=== PATIENT | male | born 2005 | race Two or more races ===

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

== ENCOUNTER 2023-01-16 22:53 | Emergency (ER) | payer MEDICAID ==
[~2023-01-16] VITALS: Ht 180.3 cm; Wt 103.5 kg
[2023-01-16 23:26] LABS: Basophils # (auto) 0 10 ^3/uL (0-0.2); Basophils % (auto) 0.2 % (0.0-2.0); Eosinophils # (auto) 0.1 10 ^3/uL (0-0.8); Hematocrit 45.4 % (41.0-53.0); Hemoglobin 16.1 g/dL (13.5-17.5); Lymphocytes # (auto) 1.5 10 ^3/uL (0.4-5.4); Lymphocytes % (auto) 14.8 % (10.0-50.0); Mean Corpuscular Hgb Conc. 35.4 g/dL (32.0-36.0); Mean Corpuscular Volume 84.8 fL (80.0-100.0); Monocytes # (auto) 0.8 10 ^3/uL (0-1.3); Monocytes % (auto) 7.3 % (0.0-12.0); Neutrophils # (auto) 7.9 10 ^3/uL (1.6-8.6); Neutrophils % (auto) 76.7 % (37.0-80.0); Red Blood Cells 5.36 10^6/uL (4.5-5.90); Red Cell Distribution Width 13.1 % (11.8-14.3); White Blood Cell 10.3 10^3/uL (4.4-10.8)
[2023-01-16 23:39] VITALS: BP 129/82
[2023-01-16 23:39] LABS: BUN/Creatinine Ratio 13.5 (10.0-20.0); Calcium 8.5 mg/dL (8.5-10.1); Magnesium 1.9 mg/dL (1.6-2.6); Potassium 3.7 mmol/L (3.5-5.1)
[2023-01-16 23:42] LABS: Bilirubin, Total 1.1 mg/dL (0.2-1.0); Total Protein 7.4 g/dL (6.4-8.2)
[2023-01-16 23:48] LABS: Urine Bacteria NONE SEEN /hpf (None Seen); Urine Blood Negative /uL (Negative); Urine Mucus FEW (None Seen); Urine Specific Gravity 1.029 (1.001-1.035); Urine WBC <1 /hpf (0 - 3)
[2023-01-17] MEDS ORDERED: IBU600T PO (01:47)
[2023-01-17] MEDS ORDERED: ALBU108A5 IN (01:47)
== END 2023-01-17 01:57 | disposition home or self-care (01) ==
LOC: ER 22:53
DX: R07.89 Other chest pain (principal)
CPT/HCPCS: 36415; 71046; 80053; 81001; 83735; 83880; 84484; 85025; 85379; 93005

== ENCOUNTER 2023-07-22 18:25 | Emergency (ER) | payer MEDICAID ==
[~2023-07-22] VITALS: Ht 180.3 cm; Wt 110.0 kg
[~2023-07-22 18:25] MED LIST: ALBU108A5 IN; IBU600T PO
[2023-07-22 18:35] VITALS: BP 136/69; PULSE 100; RESP 18; O2SAT 96
[2023-07-22] MEDS ORDERED: OFL50TS OT (20:37)
[2023-07-22] MEDS ORDERED: CEPH500C PO (20:37)
[2023-07-22] MEDS ORDERED: HYDR-4902 PO (20:37)
[2023-07-22] MEDS ORDERED: HYDROcodone-ACET 5/325MG TAB PO ONE (20:45)
== END 2023-07-23 05:12 | disposition home or self-care (01) ==
LOC: ER 18:25
DX: L98.0 Pyogenic granuloma (principal); Z79.899 Other long term (current) drug therapy